=== PATIENT | female | born 1975 | race Caucasian/White ===

== ENCOUNTER → 2020-11-02 | Outpatient (CLI) | payer OTHER ==
[~2020-11-02] MED LIST: CLEOCIN HCL300 MG PO; DIABETA 5 MG TAB5 MG PO; NORCO 10-325 T1 EACH PO; RIFADIN300 MG PO
== END ==
LOC: MAMO 12:13
DX: Z12.31 Encounter for screening mammogram for malignant neoplasm of breast (principal)
CPT/HCPCS: 77063; 77067

== ENCOUNTER → 2022-01-06 | Outpatient (CLI) | payer OTHER | LOC: KOH-I 01-03 09:00 | DX: S93.402A Sprain of unspecified ligament of left ankle, initial encounter (principal); M65.872 Other synovitis and tenosynovitis, left ankle and foot | CPT/HCPCS: 73721 ==

== ENCOUNTER → 2022-04-04 | Outpatient (CLI) | payer OTHER | LOC: KOH-I 11:06 | DX: M25.571 Pain in right ankle and joints of right foot (principal); M79.672 Pain in left foot | CPT/HCPCS: 73610; 73630 ==